=== PATIENT | female | born 1935 | race Caucasian/White ===

== ENCOUNTER → 2016-11-14 | Outpatient (CLI) | payer OTHER, MEDICARE ==
[~2016-11-14] MED LIST: CHOL2000 PO; ESCI1TAB10 PO; HYDR50TA3 PO; LEVO100T PO; METO25TA3 PO; OMEP20CA9 PO; OXYC-57 PO; POTA20TA16 PO; PRED-301 PO; PRED10PA3 PO
== END | disposition home or self-care (01) ==
LOC: C.RDSM 09:45
PROVIDERS: ATTEND Physical Medicine & Rehabilitation Sports Medicine
DX: Z47.1 Aftercare following joint replacement surgery (principal); Z96.651 Presence of right artificial knee joint

== ENCOUNTER 2017-10-11 12:07 | Day surgery (SDC) | payer OTHER, MEDICARE ==
[2017-10-06 10:29] VITALS: BMI 29.0
[~2017-10-11] VITALS: Ht 165.1 cm; Wt 80.5 kg
[~2017-10-11 12:07] MED LIST changes: +ATROPINE SULFATE 0.1 MG/ML 5ML SYR IV PRN; -CHOL2000 PO; +CHOL200027 PO; +CYAN10005 PO; +EpHEDrine SULFATE INJ 50 MG/ML AMP IV PRN; +FENTANYL CITRATE INJ 50 MCG/1 ML 2 ML VIAL IV PRN; +FLUT50SP45; +HYDROmorphone INJ 0.5 MG/0.5 ML SYR IV PRN; +IPRA0.03 NAE; +LABETALOL HCL IV 5 MG/ML 20ML IV PRN; +LACTATED RINGER'S 1000ML 1,000 ML IV SCH; -LEVO100T PO; +LEVO50TA PO; +LEVO75TA5 PO; +MEPERIDINE HCL 25 MG/ML CARP IV PRN; -METO25TA3 PO; +METO25TA4 PO; -PRED-301 PO; -PRED10PA3 PO; +PRED10TA PO
[2017-10-11] MEDS ORDERED: LACTATED RINGER'S 1000ML 1,000 ML IV ONE (12:09)
[2017-10-11] MEDS ORDERED: VITACAP26 PO (13:10)
[2017-10-11] MEDS ORDERED: ASPI-390 PO (13:11)
[2017-10-11 13:14] VITALS: BP 142/68; PULSE 78; TEMP 36.6; O2SAT 94; Ht 165.1 cm; Wt 80.5 kg
[2017-10-11] MEDS ORDERED: INDOMETHACIN 50 MG SUPP PR ONE (13:15)
--- NOTE | 2017-10-11 14:10 | Endo History and Physical ---
History & Physical Date of Service: Oct 11, 2017. Chief Complaint: Nausea / abdominal pain + weight loss Referring Physician: History of Present Illness patient referred for EUS/EGD and possible ercp to evaluate several months of worsening post-prandial abdominal pain and nausea. She has a history of choledocholithiasis and last had an ERCP in 2016. Past Medical History Endocrine Disorder, Osteoporosis, Arthritis, Pacemaker, Gastrointestinal Disorder, Reflux, High Cholesterol, Heart Disease, CHF, Implantable Defibrillator, Thyroid Disease, Chronic Steroid Use, Depression Past Surgical History Hx Cardiac Surgery: Yes (PACEMAKER IMPLANT, CARDIC CATH (DIAGNOSITIC ONLY)) Hx Abdominal Surgery: Yes (hysterectomy, abdominal incisional hernia, choly, appy) Hx Post-Op Nausea and Vomiting: Yes Hx Cancer Surgery: No Hx Thoracic Surgery: No Hx Orthopedic: Yes (meniscus r knee, right hand surgery, RT WRIST/ARM ORIF, RIGHT TKA, BUNIONEC) Hx Urinary Tract Surgery: No Social History Smoking Status: Former Smoker Hx Substance Use: No Hx Alcohol Use: Yes (socially) Allergies Coded Allergies: Iopromide (Verified Allergy, Unknown, HIVES, 10/11/17) Lanolin (Verified Allergy, Unknown, ITCHINESS, 10/11/17) Lobster (Verified Allergy, Unknown, VOMITING, 10/11/17) Mannitol (Verified Allergy, Unknown, HIVES, 10/11/17) Morphine (Verified Allergy, Unknown, RASH, 10/11/17) Ondansetron (Verified Allergy, Unknown, HYPOTENSION, 10/11/17) Statins (Verified Allergy, Unknown, JOINT AND MUSCLE PAIN, 10/11/17) Sulfa Antibiotics (Verified Allergy, Unknown, HIVES, 10/11/17) Colesevelam (Verified Adverse Reaction, Unknown, NAUSEA, 10/11/17) Current Medications Reported Home Medications Medications Dose Route/Sig Max Daily Dose Days Date Category Dose Instructions Excedrin Migraine (Efvvvyi-Tevpvvvbmehkj-Jxjfksiw) 1 Tab Tab 1 Tab PO DAILY PRN 10/11/17 Reported Vitamin C (Vitamins C & E) 1 Cap Cap 1 Cap PO DAILY 10/11/17 Reported Ipratropium [place] (Ipratropium [place] (Nasal)) 0.03 % Spr 1 [place] MILES TID PRN 10/06/17 Reported Allergy Nasal [place] 24 Ho (Fluticasone Propionate (Nasal)) 50 Mcg/Act Spr 2 Sprays NA QAM 10/06/17 Reported Vitamin B-12 (Cyanocobalamin) 1,000 Mcg Tab 1,000 Mcg PO QAM 10/06/17 Reported Vitamin D-3 (Cholecalciferol) 2,000 Unit Tab 1 Tab PO QAM 10/06/17 Reported Levothyroxine Sodium 75 Mcg Tab 1 Tab PO Q2D 30 10/06/17 Reported Prednisone 10 Mg Tab 15 Mg PO QAM 10/06/17 Reported Synthroid (Levothyroxine Sodium) 50 Mcg Tab 50 Mcg PO Q2D 10/06/17 Reported Percocet 5MG/325MG (Oxycodone/Acetaminophen) Tab 1-2 Tablets PO Q4H PRN 01/06/16 Reported PAIN Klor-Con (Potassium Chloride) 20 Meq Tabcr 20 Meq PO BID 09/05/14 Reported Toprol Xl (Metoprolol Succinate) 25 Mg Tabcr 25 Mg PO QAM 09/05/14 Reported Prilosec (Omeprazole) 20 Mg Cap 20 Mg PO QAM 09/05/14 Reported Lexapro (Escitalopram Oxalate) 20 Mg Tab 20 Mg PO QAM 09/05/14 Reported Hctz (Hydrochlorothiazide) 50 Mg Tab 50 Mg PO QAM 09/05/14 Reported Vital Signs Weight (Kilograms): 80.5 Height (Feet): 5 Height (Inches): 5 Date Time Temp Pulse Resp B/P (MAP) Pulse Ox O2 Delivery O2 Flow Rate FiO2 10/11/17 13:14 36.6 78 20 142/68 (92) 94 Room Air Physical Exam General Appearance: no apparent distress Respiratory/Chest: Auscultation: breath sounds normal Cardiovascular: Heart Auscultation: II/ YOVANI Abdomen: Inspection & Palpation: RUQ tenderness Assessment and Plan We are planning for EGD and EUS to evaluate a history of post-prandial nausea and pain. If found to have CBD stones / sludge will plan for ERCP today. We have discussed the risks to include bleeding, infection, perforation, pain, pancreatitis and failed biliary cannulation. Plan EGD EUS ERCP if sludge / stone found in CBD
[2017-10-11] MEDS ORDERED: ONDANSETRON INJ 2 MG/ML 2 ML VIAL ONE (14:16)
[2017-10-11] MEDS ORDERED: SUCCINYLCHOLINE CHLORIDE 20 MG/ML 10 ML VIAL IV ONE (14:16)
[2017-10-11] MEDS ORDERED: PHENYLEPHRINE HCL INJ 10 MG/ML VIAL ONE (14:16)
[2017-10-11] MEDS ORDERED: DEXAMETHASONE SOD INJ 4 MG/ML VIAL ONE (14:16)
[2017-10-11] MEDS ORDERED: NEOSTIGMINE METHYLSULFATE 5 MG/5 ML SYR ONE (14:16)
[2017-10-11] MEDS ORDERED: LIDOCAINE HCL 2% 2 ML VIAL (20MG/ML) ONE (14:16)
[2017-10-11] MEDS ORDERED: FENTANYL CITRATE INJ 50 MCG/1 ML 2 ML VIAL ONE (14:16)
[2017-10-11] MEDS ORDERED: EpHEDrine SULFATE INJ 50 MG/ML AMP ONE (14:16)
[2017-10-11] MEDS ORDERED: GLYCOPYRROLATE INJ 0.2 MG/ML VIAL ONE (14:16)
[2017-10-11] MEDS ORDERED: PROPOFOL IV EMULSION 10 MG/ML 20 ML VIAL IV ONE (14:16)
--- NOTE | 2017-10-11 14:44 | GI REPORT ---
Procedure Date: 10/11/2017 2:21 PM Procedure: Upper GI endoscopy Indications: Epigastric abdominal pain, Weight loss Medicines: General Anesthesia Complications: No immediate complications. Estimated blood loss: Minimal. Estimated Blood Loss: Estimated blood loss was minimal. Procedure: Pre-Anesthesia Assessment: - Prior to the procedure, a History and Physical was performed, and patient medications, allergies and sensitivities were reviewed. The patient's tolerance of previous anesthesia was reviewed. - The risks and benefits of the procedure and the sedation options and risks were discussed with the patient. All questions were answered and informed consent was obtained. - Patient identification and proposed procedure were verified prior to the procedure by the physician, the nurse and the salvager. The procedure was verified in the procedure room. - Pre-procedure physical examination revealed no contraindications to sedation. - ASA Grade Assessment: III - A patient with severe systemic disease. - After reviewing the risks and benefits, the patient was deemed in satisfactory condition to undergo the procedure. - The anesthesia plan was to use general anesthesia. - Immediately prior to administration of medications, the patient was re-assessed for adequacy to receive sedatives. - The heart rate, respiratory rate, oxygen saturations, blood pressure, adequacy of pulmonary ventilation, and response to care were monitored throughout the procedure. - The physical status of the patient was re-assessed after the procedure. After obtaining informed consent, the endoscope was passed under direct vision. Throughout the procedure, the patient's blood pressure, pulse, and oxygen saturations were monitored continuously. The scope was introduced through the mouth, and advanced to the third part of duodenum. The upper GI endoscopy was accomplished without difficulty. The patient tolerated the procedure well. Findings: The examined esophagus was normal. The Z-line was regular and was found 37 cm from the incisors. Diffuse mild inflammation characterized by congestion (edema), erythema and granularity was found in the entire examined stomach. Biopsies were taken with a cold forceps for histology. Estimated blood loss was minimal. The examined duodenum was normal. Impression: - Normal esophagus. - Z-line regular, 37 cm from the incisors. - Chronic gastritis. Biopsied. - Normal examined duodenum. Recommendation: - Perform an upper endoscopic ultrasound (UEUS) today. - Await pathology results. Robson Pierce D.O. Robson Pierce DO 10/11/2017 2:43:39 PM This report has been signed electronically. Note Initiated On: 10/11/2017 2:21 PM I attest to the content of the Intraoperative Record and orders documented therein, exceptions below
--- NOTE | 2017-10-11 15:01 | GI REPORT ---
Procedure Date: 10/11/2017 2:22 PM Procedure: Upper EUS Indications: Suspected choledocholithiasis, Epigastric abdominal pain, Abdominal pain in the right upper quadrant Medicines: General Anesthesia Complications: No immediate complications. Estimated blood loss: Minimal. Estimated Blood Loss: Estimated blood loss was minimal. Procedure: Pre-Anesthesia Assessment: - Prior to the procedure, a History and Physical was performed, and patient medications, allergies and sensitivities were reviewed. The patient's tolerance of previous anesthesia was reviewed. - The risks and benefits of the procedure and the sedation options and risks were discussed with the patient. All questions were answered and informed consent was obtained. - Patient identification and proposed procedure were verified prior to the procedure by the physician, the nurse and the air duct mechanic. The procedure was verified in the pre-procedure area in the procedure room. - Pre-procedure physical examination revealed no contraindications to sedation. - ASA Grade Assessment: IV - A patient with severe systemic disease that is a constant threat to life. - After reviewing the risks and benefits, the patient was deemed in satisfactory condition to undergo the procedure. - The anesthesia plan was to use general anesthesia. - Immediately prior to administration of medications, the patient was re-assessed for adequacy to receive sedatives. - The heart rate, respiratory rate, oxygen saturations, blood pressure, adequacy of pulmonary ventilation, and response to care were monitored throughout the procedure. - The physical status of the patient was re-assessed after the procedure. After obtaining informed consent, the endoscope was passed under direct vision. Throughout the procedure, the patient's blood pressure, pulse, and oxygen saturations were monitored continuously. The Scope was introduced through the mouth, and advanced to the second part of duodenum. The upper EUS was accomplished without difficulty. The patient tolerated the procedure well. Findings: Endosonographic Finding : Evidence of a previous cholecystectomy was identified endosonographically. There was dilation in the common bile duct which measured up to 8 mm. Several stones were visualized endosonographically in the common bile duct. They were hyperechoic and characterized by shadowing. There was no sign of significant endosonographic abnormality in the left lobe of the liver. Homogeneous parenchyma and no focal pathology were identified. There was no sign of significant endosonographic abnormality in the entire pancreas. The pancreatic duct measured up to 2.5 mm in diameter in the body and 1.5 mm in the tail. No masses, no cysts, the pancreatic duct was thin in caliber. No lymphadenopathy seen. There was no sign of significant endosonographic abnormality in the left adrenal gland. No adrenal gland enlargement was identified. Impression: - Evidence of a cholecystectomy. - There was dilation in the common bile duct which measured up to 8 mm. - Several stones were visualized endosonographically in the common bile duct. - There was no evidence of significant pathology in the left lobe of the liver. - There was no sign of significant pathology in the entire pancreas. - Endosonographic images of the left adrenal gland were unremarkable. - No specimens collected. Recommendation: - Perform an ERCP today. Robson Pierce D.O. Robson Pierce, 10/11/2017 3:01:10 PM This report has been signed electronically. Note Initiated On: 10/11/2017 2:22 PM I attest to the content of the Intraoperative Record and orders documented therein, exceptions below
--- NOTE | 2017-10-11 15:25 | [facility] Post Operative Brief Note ---
Immediate Operative Summary Operative Date Oct 11, 2017. Pre-Operative Diagnosis post-prandial nausea and pain Post-Operative Diagnosis Gastritis Dilated common bile duct Bile duct sludge Procedure(s) Performed Upper Gastrointestinal Endoscopy, Upper Endoscopic Ultrasonography, Endoscopic Retrograde Cholangiopancreatography Surgeon Dr. Pierce Lithographing Machine Operator Surgeon(s) none Estimated Blood Loss 0 ml Findings Consistent with Post-Op Diagnosis Specimens 1) Gastric biopsies Drains None Anesthesia Type General Complication(s) none Disposition Accompanied Pt To Recover: no Disposition: Recovery Room / PACU
--- NOTE | 2017-10-11 15:25 | GI REPORT ---
Procedure Date: 10/11/2017 3:01 PM Procedure: ERCP Indications: Abdominal pain of suspected biliary origin, Abnormal endoscopic ultrasound of the biliary system Medicines: General Anesthesia Complications: No immediate complications. Estimated blood loss: Minimal. Estimated Blood Loss: Estimated blood loss was minimal. Procedure: Pre-Anesthesia Assessment: - Prior to the procedure, a History and Physical was performed, and patient medications, allergies and sensitivities were reviewed. The patient's tolerance of previous anesthesia was reviewed. - The risks and benefits of the procedure and the sedation options and risks were discussed with the patient. All questions were answered and informed consent was obtained. - Patient identification and proposed procedure were verified prior to the procedure by the physician, the nurse and the hammer repairer. The procedure was verified in the procedure room. - Pre-procedure physical examination revealed no contraindications to sedation. - ASA Grade Assessment: IV - A patient with severe systemic disease that is a constant threat to life. - After reviewing the risks and benefits, the patient was deemed in satisfactory condition to undergo the procedure. - The anesthesia plan was to use general anesthesia. - Immediately prior to administration of medications, the patient was re-assessed for adequacy to receive sedatives. - The heart rate, respiratory rate, oxygen saturations, blood pressure, adequacy of pulmonary ventilation, and response to care were monitored throughout the procedure. - The physical status of the patient was re-assessed after the procedure. After obtaining informed consent, the scope was passed under direct vision. Throughout the procedure, the patient's blood pressure, pulse, and oxygen saturations were monitored continuously. The Scope was introduced through the mouth, and advanced to the duodenum and used to inject contrast into the bile duct. The ERCP was accomplished without difficulty. The patient tolerated the procedure well. Findings: A tank worker film of the abdomen was obtained. Surgical clips, consistent with a previous cholecystectomy, were seen in the area of the right upper quadrant of the abdomen. The esophagus was successfully intubated under direct vision without detailed examination of the pharynx, larynx, and associated structures, and upper GI tract. The upper GI tract was grossly normal. A biliary sphincterotomy had been performed. The sphincterotomy appeared open. The bile duct was deeply cannulated. Contrast was injected. I personally interpreted the bile duct images. Contrast extended to the entire biliary tree. A cholecystectomy had been performed. The main bile duct was moderately dilated. The largest diameter was 10 mm. The middle third of the main bile duct contained filling defect(s) thought to be sludge. To discover objects, the biliary tree was swept with a 15 mm balloon and a 25 mm basket starting at the bifurcation numerous times. Sludge was swept from the duct. No filling defects remained on occlusion cholangiogram. The total fluoroscopy exposure time was 1 minute and 40 seconds. Indomethacin 100 mg was given via suppository to decrease the risk of post-ERCP pancreatitis (PEP). The endoscope was withdrawn from the patient. Impression: - Prior biliary sphincterotomy appeared open. - The biliary tree was swept and sludge was found. - Indomethacin given to decrease risk of post-ERCP pancreatitis. Recommendation: - Discharge patient to home (ambulatory). - Clear liquid diet today. - Observe patient's clinical course following today's ERCP with therapeutic intervention. - Try Prilosec (omeprazole) 20 mg PO daily (unclear if symptoms are related ot biliary sludge). Robson Pierce D.O. Robson Pierce, 10/11/2017 3:24:26 PM This report has been signed electronically. Note Initiated On: 10/11/2017 3:01 PM I attest to the content of the Intraoperative Record and orders documented therein, exceptions below
--- NOTE | 2017-10-11 15:27 | Discharge Instructions ---
Endoscopy Patient Instructions Date / Procedure(s) Performed Oct 11, 2017. ERCP, EGD, Other (Endoscopic Ultrasound) Allergy Information Coded Allergies: Iopromide (Verified Allergy, Unknown, HIVES, 10/11/17) Lanolin (Verified Allergy, Unknown, ITCHINESS, 10/11/17) Lobster (Verified Allergy, Unknown, VOMITING, 10/11/17) Mannitol (Verified Allergy, Unknown, HIVES, 10/11/17) Morphine (Verified Allergy, Unknown, RASH, 10/11/17) Ondansetron (Verified Allergy, Unknown, HYPOTENSION, 10/11/17) Statins (Verified Allergy, Unknown, JOINT AND MUSCLE PAIN, 10/11/17) Sulfa Antibiotics (Verified Allergy, Unknown, HIVES, 10/11/17) Colesevelam (Verified Adverse Reaction, Unknown, NAUSEA, 10/11/17) Discharge Date / Findings Oct 11, 2017. Reported Home Medications Medications Dose Route/Sig Max Daily Dose Days Date Category Dose Instructions Excedrin Migraine (Ygctaxd-Meywnypjqwhuq-Gsbtzoow) 1 Tab Tab 1 Tab PO DAILY PRN 10/11/17 Reported Vitamin C (Vitamins C & E) 1 Cap Cap 1 Cap PO DAILY 10/11/17 Reported Ipratropium [place] (Ipratropium [place] (Nasal)) 0.03 % Spr 1 [place] MILES TID PRN 10/06/17 Reported Allergy Nasal [place] 24 Ho (Fluticasone Propionate (Nasal)) 50 Mcg/Act Spr 2 Sprays NA QAM 10/06/17 Reported Vitamin B-12 (Cyanocobalamin) 1,000 Mcg Tab 1,000 Mcg PO QAM 10/06/17 Reported Vitamin D-3 (Cholecalciferol) 2,000 Unit Tab 1 Tab PO QAM 10/06/17 Reported Levothyroxine Sodium 75 Mcg Tab 1 Tab PO Q2D 30 10/06/17 Reported Prednisone 10 Mg Tab 15 Mg PO QAM 10/06/17 Reported Synthroid (Levothyroxine Sodium) 50 Mcg Tab 50 Mcg PO Q2D 10/06/17 Reported Percocet 5MG/325MG (Oxycodone/Acetaminophen) Tab 1-2 Tablets PO Q4H PRN 01/06/16 Reported PAIN Klor-Con (Potassium Chloride) 20 Meq Tabcr 20 Meq PO BID 09/05/14 Reported Toprol Xl (Metoprolol Succinate) 25 Mg Tabcr 25 Mg PO QAM 09/05/14 Reported Prilosec (Omeprazole) 20 Mg Cap 20 Mg PO QAM 09/05/14 Reported Lexapro (Escitalopram Oxalate) 20 Mg Tab 20 Mg PO QAM 09/05/14 Reported Hctz (Hydrochlorothiazide) 50 Mg Tab 50 Mg PO QAM 09/05/14 Reported Provider Instructions Activity Restrictions - No exercising or heavy lifting for 24 hours. - Do not drink alcohol the day of the procedure. - Do not drive a car or operate machinery until the day after the procedure. - Do not make any important decisions or sign important papers in 24 hours after the procedure. Following Day: - Return to full activity which may include returning to work/school. Diet Clear liquid diet today Treatment For Common After Affects For mild abdominal pain, bloating, or excessive gas: - Rest - Eat lightly - Lie on right side Follow-Up Information Try Omeprazole 20 mg per day Clear liquid diet today Regular diet on 10/12/17 Anesthesia Information What You Should Know You have had a procedure that required some medicine to reduce anxiety and discomfort. This treatment is called moderate sedation. After receiving the treatment, you may be sleepy, but you will be able to breathe on your own. The effects of the treatment may last for several hours. Follow these instructions along with Activity/Diet recommendations noted above: * Do NOT do anything where dizziness or clumsiness would be dangerous. * Rest quietly at home today, then you can be up and about tomorrow. * Have a responsible person stay with you the rest of today. * You may have had an I.V. today. If so, you may take the dressing off later today. Recommendations Call your doctor if: * Trouble breathing * Continuous vomiting for more than 24 hours * Temperature above 101 degrees * Severe abdominal pain or bloating * Pain not relieved by pain medicine ordered * There is increased drainage or redness from any incision * A large amount of rectal bleeding greater than 2-3 tablespoons. (If you had a polyp/s removed or have hemorrhoids, a small amount of blood - from the rectum is to be expected.) * You have any unanswered questions or concerns. IN THE EVENT OF A SERIOUS EMERGENCY, GO TO THE NEAREST EMERGENCY ROOM Your discharge instructions were prepared by provider Robson Pierce. Patient Instructions Signature Page Nga Ng Patient (or Guardian) Signature/Date: I have read and understand the instructions given to me by my caregivers. Caregiver/RN/Doctor Signature/Date: The above-named patient and/or guardian has received patient instructions on this date. + Original Patient Signature Page (only) stays with chart. Please make copy for patient.
[2017-10-11] MEDS ORDERED: ONDANSETRON INJ 2 MG/ML 2 ML VIAL IV PRN (15:30)
--- NOTE | 2017-10-11 15:47 | DIAGNOSTIC IMAGING REPORT ---
ERCP BILIARY DUCTAL CLINICAL HISTORY: 82 years-old Female presenting with EXPLORE DUCTS. TECHNIQUE: Fluoroscopy was provided for an intraoperative cholangiogram status post cholecystectomy. Contrast was injected through the cystic duct remnant. COMPARISON: 02/05/2016. FINDINGS: An endoscope projects over the descending duodenum with a catheter introduced into the common bile duct over a guidewire. The common duct was opacified with contrast though there is poor visualization of the mid to distal duct at the level of the pancreatic head. No dilatation of the intrahepatic bile ducts. Subsequently, a balloon was used to clear the mid to distal common duct presumably of choledocholithiasis. Contrast extends into the small bowel. Postsurgical changes of cholecystectomy again noted. Fluoroscopy dosage (mGy): 20.41. Fluoroscopy time: 100.3 seconds. Number of fluoroscopic spot images: 17. IMPRESSION: Fluoroscopy provided for an intraoperative cholangiogram status post cholecystectomy. Electronically signed by: Fer Phan M.D. 10/11/2017 3:46 PM Dictated Date/Time: 10/11/2017 3:44 PM
[2017-10-11] MEDS ORDERED: PROMETHAZINE HCL INJ 12.5 MG in SODIUM CHLORIDE 0.9% 50ML 50 ML IV STA (16:03)
--- NOTE | 2017-10-11 16:22 | Anesthesiology Progress Note ---
Anesthesia Post Op Note Date & Time Oct 11, 2017 at 16:22 Vital Signs Pain Intensity: 0 Vital Signs Past 12 Hours Date Time Temp Pulse Resp B/P (MAP) Pulse Ox O2 Delivery O2 Flow Rate FiO2 10/11/17 16:21 36.5 10/11/17 16:10 74 16 154/78 95 Room Air 10/11/17 16:00 76 16 151/84 95 Room Air 10/11/17 15:50 79 16 163/87 96 Room Air 10/11/17 15:40 77 16 155/85 97 Room Air 10/11/17 15:31 36.1 80 16 146/79 98 Room Air 10/11/17 13:14 36.6 78 20 142/68 (92) 94 Room Air Notes Mental Status: alert / awake / arousable, participated in evaluation Pt Amnestic to Procedure: Yes Nausea / Vomiting: adequately controlled Pain: adequately controlled Airway Patency, RR, SpO2: stable & adequate BP & HR: stable & adequate Hydration State: stable & adequate Anesthetic Complications: no major complications apparent
[2017-10-11 16:25] VITALS: BP 127/68; PULSE 74; TEMP 37.2; O2SAT 94
[2017-10-11 16:55] VITALS: BP 128/58; PULSE 71; O2SAT 93
== END 2017-10-11 17:38 | disposition home or self-care (01) ==
LOC: C.ACU 12:07
PROVIDERS: ATTEND Internal Medicine Gastroenterology
DX: R10.9 Unspecified abdominal pain (principal); R11.0 Nausea; R63.4 Abnormal weight loss; F32.9 Major depressive disorder, single episode, unspecified; K29.50 Unspecified chronic gastritis without bleeding; M81.0 Age-related osteoporosis without current pathological fracture; M19.90 Unspecified osteoarthritis, unspecified site; K21.9 Gastro-esophageal reflux disease without esophagitis; E78.00 Pure hypercholesterolemia, unspecified; I51.9 Heart disease, unspecified; I50.9 Heart failure, unspecified; Z95.810 Presence of automatic (implantable) cardiac defibrillator; Z87.891 Personal history of nicotine dependence; Z88.8 Allergy status to other drugs, medicaments and biological substances; Z88.5 Allergy status to narcotic agent; Z88.2 Allergy status to sulfonamides; Z91.013 Allergy to seafood; Z79.899 Other long term (current) drug therapy; Z79.52 Long term (current) use of systemic steroids